=== PATIENT | male | born 1995 | race Two or more races ===

== ENCOUNTER 2023-08-24 14:27 | Emergency (ER) | payer OTHER ==
[~2023-08-24] VITALS: Ht 162.6 cm; Wt 90.7 kg
[2023-08-24] MEDS ORDERED: KETOROLAC TROMETHAMINE 60 MG VIAL IM STA (16:27)
[2023-08-24] MEDS ORDERED: KETOROLAC TROMETHAMINE 60 MG VIAL IM ONE (16:40)
== END 2023-08-24 16:55 | disposition home or self-care (01) ==
LOC: ER 14:28
DX: M25.561 Pain in right knee (principal); Z88.8 Allergy status to other drugs, medicaments and biological substances